=== PATIENT | male | born 1980 | race Caucasian/White ===

== ENCOUNTER 2021-12-06 11:25 | Emergency (ER) | payer OTHER ==
[2021-12-06 13:15] LABS: HEMOGLOBIN 10.8 gm/dl (14.0-17.5); RED BLOOD COUNT 5.94 M/UL (4.20-5.50); WHITE BLOOD COUNT 15.5 K/UL (4.5-11.0)
[2021-12-06 13:30] LABS: BUN/CREATININE RATIO 11 (0-10)
[2021-12-06] MEDS ORDERED: AUGMENTIN 875-1 EACH PO (17:31)
== END 2021-12-06 18:16 | disposition home or self-care (01) ==
LOC: ER1 11:25
PROVIDERS: Emergency Medicine
DX: S01.80XA Unspecified open wound of other part of head, initial encounter (principal); I10 Essential (primary) hypertension; F41.9 Anxiety disorder, unspecified; D49.89 Neoplasm of unspecified behavior of other specified sites; X58.XXXA Exposure to other specified factors, initial encounter
CPT/HCPCS: 70486; 70487; 80048; 85025; 96365; 99284; J2543; Q9967